=== PATIENT | female | born 1995 | race African-American/Black ===

== ENCOUNTER 2021-02-11 04:26 | Emergency (ER) | payer OTHER ==
[~2021-02-11] VITALS: Ht 165.1 cm; Wt 124.7 kg
[2021-02-11] MEDS ORDERED: NOHOMEMEDICATIONS (04:38)
[2021-02-11] MEDS ORDERED: MOBIC15 MG PO (05:35)
[2021-02-11 05:44] VITALS: BP 157/105
== END 2021-02-11 05:37 | disposition home or self-care (01) ==
LOC: ER 04:26
DX: R06.02 Shortness of breath (principal); Z20.822 Contact with and (suspected) exposure to COVID-19; Z86.16 Personal history of COVID-19